=== PATIENT | female | born 1995 | race Hispanic/Latino ===

== ENCOUNTER 2025-09-24 08:00 | Emergency (ER) | payer SELFPAY ==
[2025-09-24] MEDS ORDERED: Lidocaine 1% PF 5 ML VIAL ONE (08:11)
== END 2025-09-24 09:21 | disposition home or self-care (01) ==
LOC: ERS 08:00
DX: L03.032 Cellulitis of left toe (principal)
CPT/HCPCS: 10060

== ENCOUNTER 2025-10-18 09:30 | Emergency (ER) | payer SELFPAY ==
[2025-10-18] MEDS ORDERED: Lidocaine 1% PF 5 ML VIAL ONE (10:16)
[2025-10-18] MEDS ORDERED: Amoxicillin/Potassium Clav 875 MG TAB ONE (11:02)
== END 2025-10-18 11:11 | disposition home or self-care (01) ==
LOC: ERS 09:30
DX: L03.032 Cellulitis of left toe (principal)
CPT/HCPCS: 10060